=== PATIENT | male | born 1995 | race African-American/Black ===

== ENCOUNTER 2017-09-18 20:29 | Emergency (ER) | payer BC, OTHER ==
[~2017-09-18] VITALS: Ht 193 cm; Wt 88.5 kg
[2017-09-18] MEDS ORDERED: NKM (20:47)
--- NOTE | 2017-09-18 21:11 | Emergency Room Report ---
History of Present Illness General Chief Complaint: Laceration Source: Patient Present Illness HPI 22-year-old male p/w laceration to left middle finger. sustained when he was cutting food. no other complaints. Has full range of motion of finger Tdap is not up-to-date Allergies: Coded Allergies: No Known Allergies (Unverified , 09/18/17) Patient History Past Medical History: see triage record Past Surgical History: none Pertinent Family History: none Reviewed Nursing Documentation: PMH: Agreed; PSxH: Agreed Nursing Documentation-PMH Past Medical History: No Stated History Review of Systems All Other Systems: negative except mentioned in HPI Physical Exam Vital Signs Date Time Temp Pulse Resp B/P (MAP) Pulse Ox O2 Delivery O2 Flow Rate FiO2 09/18/17 20:42 98.3 73 18 117/66 98 Room Air 98.2 Sp02 EP Interpretation: reviewed, normal General Appearance: normal inspection, well appearing, no apparent distress, alert, GCS 15, non-toxic Head: normocephalic, atraumatic Eyes: bilateral eye normal inspection, bilateral eye PERRL, bilateral eye EOMI ENT: normal ENT inspection Neck: normal inspection Respiratory: normal inspection, speaking full sentences Cardiovascular #1: normal inspection, regular rate, rhythm Cardiovascular #2: 2+ radial (R), 2+ radial (L) Gastrointestinal: normal inspection Musculoskeletal: back normal, other - Left middle finger with 1.5 cm laceration at the PIP, has full range of motion of finger, FDS FDP intact Neurologic: normal inspection, alert, oriented x3, responsive, motor strength/ tone normal, sensory intact, normal gait, speech normal Psychiatric: normal inspection, judgement/insight normal, memory normal Skin: normal inspection, normal color, no rash, warm/dry, well hydrated, normal turgor Procedures Laceration/Wound Repair Laceration/Wound Repair : Consent: Verbal Wound Location: upper extremity Wound's Depth, Shape: superficial Wound Length (cm): 2 Wound Explored: no foreign body removed Irrigated w/ Saline (ccs): 1000 Betadine Prep?: Yes Anesthesia: 1% Lidocaine Volume Anesthetic (ccs): 2 Wound Repaired With: sutures Suture Size/Type: 4:0, nylon Layer Closure?: Yes Splint Applied?: Yes Patient Tolerated: Well Complications: None Medical Decision Making Diagnostic Impression: Primary Impression: Laceration ER Course 22-year-old male p/w laceration DDX: Laceration, no signs of infection ER course: Laceration repaired, bacitracin with sterile dressing applied. Tdap given. Disposition: Patient will be discharged home. Strict return precautions discussed with patient such as fever, chills, increasing bleeding to site, purulent drainage, rapid swelling or redness to area. Patient verbalizes understanding. Patient sis informed of inevitable scar that will result from laceration despite repair. Pt instructed to avoid sun exposure to decrease the appearance of scar. Patient instructed to return to ED or their primary care doctor in 10-14 days for removal of sutures. Patient agrees with plan. Please note that this Emergency Department Report was dictated using [employer] driver technology software, occasionally this can lead to erroneous entry secondary to interpretation by the dictation equipment Last Vital Signs Date Time Temp Pulse Resp B/P (MAP) Pulse Ox O2 Delivery O2 Flow Rate FiO2 09/18/17 20:42 98.3 73 18 117/66 98 Room Air 98.2 Condition: Improved Patient Instructions: Laceration Care, Adult Nickie Mares M.D. September 18, 2017 21:11
[2017-09-18] MEDS ORDERED: Tetanus/Diptheria/Pertussis Vaccine 0.5ml Syr IM ONE (21:15)
[2017-09-18] MEDS ORDERED: Lidocaine 1% Plain 30 ml INJ ONE (21:30)
[2017-09-18 21:40] VITALS: BP 120/68
[2017-09-18] MEDS ORDERED: Bacitracin Oint UD TOPIC ONE ×2 (21:40→21:45)
[2017-09-18 21:45] VITALS: BP 120/68
== END 2017-09-18 21:45 | disposition home or self-care (01) ==
LOC: EMR 21:27
DX: S61.213A Laceration without foreign body of left middle finger without damage to nail, initial encounter (principal); Z23 Encounter for immunization; W45.8XXA Other foreign body or object entering through skin, initial encounter; Y93.G3 Activity, cooking and baking
CPT/HCPCS: 12001; 90471; 90715; 96372; 99283; J2001

== ENCOUNTER 2017-09-27 17:57 | Emergency (ER) | payer BC, OTHER ==
[~2017-09-27] VITALS: Ht 193 cm; Wt 88.5 kg
[~2017-09-27 17:57] MED LIST: NKM
[2017-09-27] MEDS ORDERED: NKM (18:04)
[2017-09-27 18:09] VITALS: BP 112/64
--- NOTE | 2017-09-27 18:24 | Emergency Room Report ---
History of Present Illness General Chief Complaint: Wound Recheck/Suture Removal Source: Patient Present Illness HPI 22-year-old male patient presents ER requesting suture removal from left index finger. Reports sutures were placed at [facility] 9 days ago. Reports has been using his hand without difficulty, denies new or worsening of symptoms. Reports has been using bacitracin and keeping the wound clean. reports injury occurred when he when he cut his hand with a knife. Allergies: Coded Allergies: No Known Allergies (Unverified , 09/18/17) Patient History Past Medical History: see triage record Reviewed Nursing Documentation: PMH: Agreed; PSxH: Agreed Nursing Documentation-PMH Past Medical History: No Stated History Review of Systems All Other Systems: negative except mentioned in HPI Physical Exam Vital Signs Date Time Temp Pulse Resp B/P (MAP) Pulse Ox O2 Delivery O2 Flow Rate FiO2 09/27/17 17:59 98.3 64 17 112/64 99 Room Air 98.2 Sp02 EP Interpretation: reviewed, normal General Appearance: well appearing, no apparent distress, alert, GCS 15, non- toxic Head: normocephalic, atraumatic ENT: hearing grossly normal, normal pharynx, no angioedema, normal voice, uvula midline, moist mucus membranes Neck: full range of motion Respiratory: lungs clear, normal breath sounds, no rhonchi, no respiratory distress, no accessory muscle use, no wheezing, speaking full sentences Cardiovascular #1: regular rate, rhythm, no edema Cardiovascular #2: 2+ radial (R), 2+ radial (L) Musculoskeletal: back normal, digits/nails normal, gait/station normal, normal range of motion, non-tender, other - no fusiform swelling, no tenderness to palpation over the flexor tendon, no pain with extension Psychiatric: mood/affect normal Skin: laceration - left index finger dorsum of hand at PIP joint: healing 1.5 cm laceration at the PIP, has full range of motion of finger, no erythema, 5 sutures visible Medical Decision Making PA Attestation Dr. Bustos is my supervising Physician whom patient management has been discussed with. Diagnostic Impression: Primary Impression: Suture check ER Course Pt. presents to the ED requesting wound check of Ddx considered but are not limited to cellulitis, abscess, wound check, folliculitis. No fusiform swelling, no TTP along flexor tendon, no pain wtih extension, finger not held in flexion, low suspicion for flexor tenosynovitis. Vital signs: are WNL, pt. is afebrile Ordered Bacitrain. ER COURSE: Wound has no signs of infection., no erythema, edema, TTP, sensation is intact to light touch. Bacitracin applied to wound. Apply Neosporin to wound to reduce appearance of scar. Laceration on finger still shows slight separation of edges of the wound, believe it is too early to remove sutures, do not believe patient should have sutures removed at this time. Informed patient to return to ER in 5-7 days or report to physician for removal of sutures at that time. Avoid excessive bending of finger to allow for wound healing. DISCHARGE: Patient instructed to continue with medications per initial ER provider instructions. At this time pt. is stable for d/c to home. Patient resting comfortably, in no acute distress, nontoxic appearing. Will provide printed patient care instructions and any necessary prescriptions. Care plan and follow up instructions have been discussed with the patient prior to discharge. Patient instructed to follow-up with primary care provider for further treatment and referral. Patient questions asked and answered. ER precautions given. Patient instructed to return to ER immediately for any new or worsening of symptoms including but not limited to fever, worsening of pain symptoms. - Please note that this Emergency Department Report was dictated using [employer] technology software, occasionally this can lead to erroneous entry secondary to interpretation by the dictation equipment. Last Vital Signs Date Time Temp Pulse Resp B/P (MAP) Pulse Ox O2 Delivery O2 Flow Rate FiO2 09/27/17 17:59 98.3 64 17 112/64 99 Room Air 98.2 Disposition: HOME, SELF-CARE Condition: Stable Patient Instructions: Wound Check Additional Instructions: Followup with primary care provider or return to ER in 5-7 days for suture removal. Take medications as previously instructed. Patient questions asked and answered. ER precautions given, patient instructed to return to ER immediately for any new or worsening of symptoms. Leo Conner Sep 27, 2017 18:24
[2017-09-27] MEDS ORDERED: Bacitracin Oint UD TOPIC ONE (18:30)
== END 2017-09-27 19:14 | disposition home or self-care (01) ==
LOC: EMR 18:26
DX: S61.211D Laceration without foreign body of left index finger without damage to nail, subsequent encounter (principal)
CPT/HCPCS: 99281

== ENCOUNTER → 2017-10-05 | Emergency (ER) | payer OTHER ==
[~2017-10-05] VITALS: Ht 193 cm; Wt 88.5 kg
[2017-10-05 19:27] VITALS: BP 116/64
--- NOTE | 2017-10-06 00:11 | Emergency Room Report ---
History of Present Illness General Chief Complaint: Wound Recheck/Suture Removal Source: Patient Present Illness Allergies: Coded Allergies: No Known Allergies (Unverified , 09/18/17) Nursing Documentation-[facility] Past Medical History: No Stated History Physical Exam Vital Signs Date Time Temp Pulse Resp B/P (MAP) Pulse Ox O2 Delivery O2 Flow Rate FiO2 10/05/17 19:27 98.4 68 16 116/64 98 Room Air 98.4 Medical Decision Making Diagnostic Impression: Primary Impression: Patient left without being seen Last Vital Signs Date Time Temp Pulse Resp B/P (MAP) Pulse Ox O2 Delivery O2 Flow Rate FiO2 10/05/17 19:27 98.4 68 16 116/64 98 Room Air 98.4 Status: unchanged Disposition: LEFT W/OUT BEING SEEN Condition: Unknown Referrals: NOT CHOSEN IPA/,REFERRING (PCP) Dao Buchanan MD Oct 06, 2017 00:11
== END | disposition left against medical advice (07) ==
LOC: EMR 21:44
DX: Z48.02 Encounter for removal of sutures (principal); Z53.21 Procedure and treatment not carried out due to patient leaving prior to being seen by health care provider
CPT/HCPCS: 99282

== ENCOUNTER 2017-10-07 09:18 | Emergency (ER) | payer OTHER ==
[~2017-10-07] VITALS: Ht 195.6 cm; Wt 88.5 kg
[2017-10-07 09:33] VITALS: BP 121/81
--- NOTE | 2017-10-07 10:05 | Emergency Room Report ---
History of Present Illness General Chief Complaint: Wound Recheck/Suture Removal Source: Patient Present Illness HPI This patient states that he presents for suture removal on the index finger of his right hand. He had a laceration and underwent repair on November 18. He denies pain. He has no other complaints. Allergies: Coded Allergies: No Known Allergies (Unverified , 09/18/17) Patient History Past Medical History: none Reviewed Nursing Documentation: PMH: Agreed; PSxH: Agreed Nursing Documentation-PMH Past Medical History: No Stated History Review of Systems All Other Systems: negative except mentioned in HPI Physical Exam Vital Signs Date Time Temp Pulse Resp B/P (MAP) Pulse Ox O2 Delivery O2 Flow Rate FiO2 10/07/17 09:27 98.2 78 18 121/81 99 Room Air 98.2 Sp02 EP Interpretation: reviewed, normal General Appearance: no apparent distress, alert, GCS 15, non-toxic Head: normocephalic, atraumatic Eyes: bilateral eye normal inspection, bilateral eye PERRL ENT: hearing grossly normal, normal pharynx, no angioedema, normal voice Neck: normal inspection Respiratory: no respiratory distress, no retraction, no accessory muscle use, speaking full sentences Rectal: deferred Musculoskeletal: gait/station normal, other - R. index finger with sutures over IP joint. Skin healed. Neurologic: alert, oriented x3, responsive, motor strength/tone normal, sensory intact, speech normal Psychiatric: judgement/insight normal, memory normal, mood/affect normal, no suicidal/homicidal ideation Skin: normal color, no rash, warm/dry, well hydrated Medical Decision Making Diagnostic Impression: Primary Impression: Encounter for removal of sutures ER Course Patient presented for suture removal. The wound is healing well. Sutures are removed without complication or incident. The patient was put in extension splint as a precaution for concern that the wound could open back up. The patient is given return precautions and follow-up instructions. Last Vital Signs Date Time Temp Pulse Resp B/P (MAP) Pulse Ox O2 Delivery O2 Flow Rate FiO2 10/07/17 09:33 98.2 84 18 121/81 99 Room Air 98.2 Status: improved Disposition: HOME, SELF-CARE Condition: Improved Referrals: NOT CHOSEN IPA/,REFERRING (PCP) Yuliya Soto DO Oct 07, 2017 10:04
[2017-10-07 10:27] VITALS: BP 121/81
== END 2017-10-07 10:28 | disposition home or self-care (01) ==
LOC: EMR 09:36
DX: Z48.02 Encounter for removal of sutures (principal)
CPT/HCPCS: 99282